=== PATIENT | male | born 1960 | race Hispanic/Latino ===

== ENCOUNTER 2018-09-27 13:47 | Emergency (ER) | payer BC ==
[2018-09-27 14:37] VITALS: BP 159/75; PULSE 81; RESP 20; TEMP 98.3; O2SAT 99
--- NOTE | 2018-09-27 14:58 | C.PDOC ---
History Of Present Illness 58 year old male presents to the emergency department with complaints of decreased hearing and clogged ears bilaterally for several days. Patient denies fever, ear discharge, and ear pain. Time Seen by Provider: 09/27/18 14:41 Chief Complaint (Nursing): ENT Problem History Per: Patient History/Exam Limitations: None Onset/Duration Of Symptoms: Days Current Symptoms Are (Timing): Still Present Quality (Ear): denies: Pain W/Touch, Discharge Past Medical History Reviewed: Historical Data, Nursing Documentation, Vital Signs Vital Signs: Last Vital Signs Temp 98.3 F 09/27/18 14:33 Pulse 81 09/27/18 14:33 Resp 20 09/27/18 14:33 BP 159/75 H 09/27/18 14:33 Pulse Ox 99 09/27/18 14:33 - Medical History PMH: HTN Surgical History: No Surg Hx Family History: States: No Known Family Hx - Social History Hx Alcohol Use: No Hx Substance Use: No - Immunization History Hx Tetanus Toxoid Vaccination: No Hx Influenza Vaccination: No Hx Pneumococcal Vaccination: No Review Of Systems Constitutional: Negative for: Fever ENT: Positive for: Other (decreased hearing). Negative for: Ear Pain, Ear Discharge Physical Exam - Physical Exam Appears: Non-toxic, No Acute Distress Skin: Warm, Dry Head: Atraumatic, Normacephalic Eye(s): bilateral: Normal Inspection, PERRL Ear(s): Bilateral: TM Obscured By Wax (serumen impaction b/l), Other (no erythema, no discharge) Nose: Normal Oral Mucosa: Moist Throat: Normal, No Erythema, No Exudate Neck: Normal, Supple Chest: Symmetrical, No Tenderness Cardiovascular: Rhythm Regular, No Murmur Respiratory: Normal Breath Sounds, No Rhonchi, No Wheezing Neurological/Psych: Oriented x3, Normal Speech ED Course And Treatment O2 Sat by Pulse Oximetry: 99 (RA) Pulse Ox Interpretation: Normal Disposition Counseled Patient/Family Regarding: Diagnosis, Need For Followup, Rx Given - Disposition Referrals: Manuel Alfonso MD [Staff Provider] - Disposition: HOME/ ROUTINE Disposition Time: 15:00 Condition: STABLE Additional Instructions: FOLLOW UP WITH ENT WITHIN 1 WEEK RETURN TO ER IF SYMPTOMS WORSEN Prescriptions: Carbamide Peroxide [Debrox 15 Ml] 10 drop OT BID #1 bottle Instructions: Ear Wax Impaction (DC) Forms: SDI ([place] Citizen) Print Language: YI - Clinical Impression Clinical Impression: Impacted cerumen of both ears - Scribe Statement The provider has reviewed the documentation as recorded by the Scribe (Miguelito Philip) Provider Attestation: All medical record entries made by the Scribe were at my direction and personally dictated by me. I have reviewed the chart and agree that the record accurately reflects my personal performance of the history, physical exam, medical decision making, and the department course for this patient. I have also personally directed, reviewed, and agree with the discharge instructions and disposition.
== END 2018-09-27 15:17 | disposition home or self-care (01) ==
LOC: C.ER 13:47
DX: H61.23 Impacted cerumen, bilateral (principal); I10 Essential (primary) hypertension